=== PATIENT | male | born 1950 | race Caucasian/White ===

== ENCOUNTER 2018-04-03 19:24 | Emergency (ER) | payer MEDICARE ==
[2018-04-03 20:31] VITALS: BP 109/60
--- NOTE | 2018-04-03 20:40 | UC ---
Skin Complaint HPI - HPI Summary HPI Summary: Pt is accompanied by two caregivers. Caregivers reports that pt has a "sore" on left lower corner of lip. 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 Onset/Duration: Gradual Onset, Lasting Days, Still Present Skin Exposure Onset/Duration: Days Ago Timing: Constant Onset Severity: Mild Current Severity: Moderate Pain Intensity: 0 Location: Discrete, Other - left thais elower lip Character: Swelling Aggravating Factor(s): Nothing Alleviating Factor(s): Unknown Associated Signs & Symptoms: Positive: Negative - Allergy/Home Medications Allergies/Adverse Reactions: Allergies Allergy/AdvReac Type Severity Reaction Status Date / Time chlorpromazine Allergy Unknown Verified 04/03/18 20:34 [From Thorazine] Reaction Details codeine Allergy Unknown Verified 04/03/18 20:34 Reaction Details diphenhydramine Allergy Unknown Verified 04/03/18 20:34 Reaction Details lisinopril Allergy Unknown Verified 04/03/18 20:34 Reaction Details lithium Allergy Unknown Verified 04/03/18 20:34 Reaction Details Penicillins Allergy Unknown Verified 04/03/18 20:34 Reaction Details phenobarbital Allergy Unknown Verified 04/03/18 20:34 Reaction Details Sulfa (Sulfonamide Allergy Unknown Verified 04/03/18 20:34 Antibiotics) Reaction Details Home Medications: Home Medications ARIPiprazole TAB* [Abilify 2 MG TAB*] 2 mg PO DAILY 04/03/18 [History Confirmed 04/03/18] Atorvastatin* [Lipitor 40 MG*] 40 mg PO DAILY 04/03/18 [History Confirmed ] Bisacodyl EC TAB* [Dulcolax EC TAB*] 10 mg PO DAILY 04/03/18 [History Confirmed 04/03/18] Donepezil TAB* [Aricept 5 MG TAB*] 10 mg PO BEDTIME 04/03/18 [History Confirmed 04/03/18] Paliperidone SUSTENNA* [Invega Sustenna*] 117 mg IM Q30D 04/03/18 [History Confirmed 04/03/18] Selegiline 6 MG PATCH (NF) [Emsam PATCH (NF)] 1 patch TRANSDERM DAILY 04/03/18 [ History Confirmed 04/03/18] amLODIPine TAB* [Norvasc 5 mg TAB*] 10 mg PO DAILY 04/03/18 [History Confirmed 04/03/18] Review of Systems Constitutional: Negative Skin: Other - sore on lip Eyes: Negative ENT: Negative Respiratory: Negative Cardiovascular: Negative Gastrointestinal: Negative Genitourinary: Negative Motor: Negative Neurovascular: Negative Musculoskeletal: Negative, Decreased ROM - left hand preexisting Neurological: Negative Psychological: Negative Is Patient Immunocompromised?: No All Other Systems Reviewed And Are Negative: Yes PMH/Surg Hx/FS Hx/Imm Hx Previously Healthy: Yes Neurological History: Other - cognitive dysfunction Other Neurological History: cognitive dysfunction - Family History Known Family History: Positive: Cardiac Disease - Social History Occupation: Disabled Lives: Half-Way Alcohol Use: None Substance Use Type: None Smoking Status (MU): Never Smoked Tobacco Have You Smoked in the Last Year: No Physical Exam Triage Information Reviewed: Yes Appearance: Well-Appearing Vital Signs: Initial Vital Signs Temp 99.9 F 04/03/18 20:27 Pulse 106 04/03/18 20:27 Resp 19 04/03/18 20:27 BP 109/60 04/03/18 20:27 Pulse Ox 97 04/03/18 20:27 Vital Signs Reviewed: Yes Eye Exam: Normal ENT Exam: Other ENT: Positive: Other - left lower lip near corner of mouth, blister clear fluid filled ~ 1 cm X 5 mm. , non tender Neck exam: Normal Respiratory: Positive: No respiratory distress Musculoskeletal Exam: Other Musculoskeletal: Positive: ROM Limited @ - left hand Neurological: Positive: Alert Psychological Exam: Normal Psychological: Positive: Consolable Skin Exam: Other - mouth sore on lower left lip Course/Dx - Differential Diagnoses - Skin Complaint Differential Diagnoses: MRSA, Varicella Zoster, Other - oral herpes - Diagnoses Provider Diagnoses: oral herpes Discharge - Sign-Out/Discharge Documenting (check all that apply): Discharge/Admit/Transfer - Discharge Plan Condition: Stable Disposition: HOME Prescriptions: ValACYclovir (*) [Valtrex 1 GM(*)] 1 gm PO Q12H #10 tab Patient Education Materials: Canker Sores (ED) Referrals: No Primary Care Phys,NOPCP [Primary Care Provider] - If Needed - Billing Disposition and Condition Condition: STABLE Disposition: Home
[2018-04-03] MEDS ORDERED: Acyclovir* 200 MG CAP PO ONE (20:41)
== END 2018-04-03 20:52 | disposition home or self-care (01) ==
LOC: UCCORT 19:24
DX: B00.9 Herpesviral infection, unspecified (principal); Z88.8 Allergy status to other drugs, medicaments and biological substances; Z88.5 Allergy status to narcotic agent; Z88.0 Allergy status to penicillin; Z88.2 Allergy status to sulfonamides
CPT/HCPCS: 99212; A9270-GY; G0463

== ENCOUNTER 2018-10-24 08:42 | Emergency (ER) | payer MEDICARE ==
[2018-10-24 09:14] VITALS: BP 115/70
--- NOTE | 2018-10-24 09:47 | ED ---
Throat Pain/Nasal Congestion - HPI Summary HPI Summary: 68 yr old with exposure to pink eye at the [facility], and presents here with some drainage from the right eye for two days, and yesterday some swelling to the right upper eyelid. No swelling now. No other complaints. Symptoms are mild. - History of Current Complaint Chief Complaint: UCEye Time Seen by Provider: 10/24/18 09:36 - Allergies/Home Medications Allergies/Adverse Reactions: Allergies Allergy/AdvReac Type Severity Reaction Status Date / Time chlorpromazine Allergy Unknown Verified 10/24/18 09:15 [From Thorazine] Reaction Details codeine Allergy Unknown Verified 10/24/18 09:15 Reaction Details diphenhydramine Allergy Unknown Verified 10/24/18 09:15 Reaction Details lisinopril Allergy Unknown Verified 10/24/18 09:15 Reaction Details lithium Allergy Unknown Verified 10/24/18 09:15 Reaction Details Penicillins Allergy Unknown Verified 10/24/18 09:15 Reaction Details phenobarbital Allergy Unknown Verified 10/24/18 09:15 Reaction Details Sulfa (Sulfonamide Allergy Unknown Verified 10/24/18 09:15 Antibiotics) Reaction Details sulfamethoxazole Allergy Unknown Verified 10/24/18 09:15 [From Bactrim] Reaction Details trimethoprim [From Bactrim] Allergy Unknown Verified 10/24/18 09:15 Reaction Details Home Medications: Home Medications LevoCETirizine TAB (NF) [Xyzal TAB (NF)] 5 mg PO DAILY 10/24/18 [History Confirmed 10/24/18] clonazePAM TAB(*) [KlonoPIN TAB(*)] 0.5 mg PO BID 10/24/18 [History Confirmed ] PMH/Surg Hx/FS Hx/Imm Hx Infectious Disease History: No Infectious Disease History: Denies: Traveled Outside the [place] in Last 30 Days - Family History Known Family History: Positive: Cardiac Disease - Social History Occupation: Employed Full-time Alcohol Use: None Substance Use Type: Reports: None Smoking Status (MU): Never Smoked Tobacco Have You Smoked in the Last Year: No Review of Systems Constitutional: Negative Positive: Drainage All Other Systems Reviewed And Are Negative: Yes Physical Exam Triage Information Reviewed: Yes Vital Signs On Initial Exam: Initial Vitals Temp Pulse Resp BP Pulse Ox 98.1 F 86 19 115/70 96 10/24/18 09:07 10/24/18 09:07 10/24/18 09:07 10/24/18 09:07 10/24/18 09:07 Vital Signs Reviewed: Yes Appearance: Positive: Well-Appearing, No Pain Distress Skin: Positive: Warm, Skin Color Reflects Adequate Perfusion, Dry Head/Face: Positive: Normal Head/Face Inspection Eyes: Positive: EOMI, Conjunctiva Inflammed - bilateral right greater than left. ENT: Positive: Pharynx normal, TMs normal Neck: Positive: Nontender Respiratory/Lung Sounds: Positive: Clear to Auscultation, Breath Sounds Present Cardiovascular: Positive: RRR. Negative: Murmur Abdomen Description: Negative: Distended Musculoskeletal: Positive: Strength/ROM Intact Neurological: Positive: Sensory/Motor Intact, Alert, Oriented to Person Place, Time, CN Intact II-III, Normal Gait, Speech Normal Psychiatric: Positive: Normal - [place] Coma Scale Best Eye Response: 4 - Spontaneous Best Motor Response: 6 - Obeys Commands Best Verbal Response: 5 - Oriented Coma Scale Total: 15 Diagnostics - Vital Signs Vital Signs Temp Pulse Resp BP Pulse Ox 10/24/18 09:07 98.1 F 86 19 115/70 96 - Laboratory Lab Statement: Any lab studies that have been ordered have been reviewed, and results considered in the medical decision making process. EENT Course/Dx - Course Course Of Treatment: 68 yrold with conjunctivitis. Rx cipro eye drops bilateral 7 days. - Diagnoses Provider Diagnoses: Conjunctivitis Discharge - Sign-Out/Discharge Documenting (check all that apply): Patient Departure All imaging exams completed and their final reports reviewed: No Studies - Discharge Plan Condition: Good Disposition: HOME Prescriptions: Ciprofloxacin 0.3% OPTH.CHELY* [Cipro 0.3% Opth*] 2 drop BOTH EYES Q4H #1 btl Patient Education Materials: Conjunctivitis (ED) Referrals: Tricia Gill MD [Primary Care Provider] - 2 Days - Billing Disposition and Condition Condition: GOOD Disposition: Home
== END 2018-10-24 10:00 | disposition home or self-care (01) ==
LOC: UCCORT 08:42
DX: H10.9 Unspecified conjunctivitis (principal); Z88.0 Allergy status to penicillin; Z88.5 Allergy status to narcotic agent; Z88.8 Allergy status to other drugs, medicaments and biological substances; Z88.2 Allergy status to sulfonamides; Z88.1 Allergy status to other antibiotic agents
CPT/HCPCS: 99212; G0463

== ENCOUNTER 2019-12-10 14:27 | Emergency (ER) | payer MEDICARE, MEDICAID ==
--- NOTE | 2019-12-10 15:20 | UC ---
General HPI - HPI Summary HPI Summary: 69 [facility] with one week history of bilateral leg swelling. Onset is associated with a 72 hour period when he was not sleeping well, and on previous days edema would decrease overnight. Today he has increased erythema in both forelegs. He has no increased cough, no change in behavior or appetite. He arrives shouting that he does not belong here and is difficult to evaluate and examine. He has been taking amlodipine for some time. Weight log from his home shows stable weight, no gradual increase. 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 Negative: Cough, Chest Pain, Decreased Responsiveness, Dizziness, Diarrhea, Vomiting - Allergy/Home Medications Allergies/Adverse Reactions: Allergies Allergy/AdvReac Type Severity Reaction Status Date / Time chlorpromazine Allergy Unknown Verified 10/24/18 09:15 [From Thorazine] Reaction Details codeine Allergy Unknown Verified 10/24/18 09:15 Reaction Details diphenhydramine Allergy Unknown Verified 10/24/18 09:15 Reaction Details lisinopril Allergy Unknown Verified 10/24/18 09:15 Reaction Details lithium Allergy Unknown Verified 10/24/18 09:15 Reaction Details Penicillins Allergy Unknown Verified 10/24/18 09:15 Reaction Details phenobarbital Allergy Unknown Verified 10/24/18 09:15 Reaction Details Sulfa (Sulfonamide Allergy Unknown Verified 10/24/18 09:15 Antibiotics) Reaction Details sulfamethoxazole Allergy Unknown Verified 10/24/18 09:15 [From Bactrim] Reaction Details trimethoprim [From Bactrim] Allergy Unknown Verified 10/24/18 09:15 Reaction Details chlorine Allergy Itching Uncoded 12/10/19 15:03 Home Medications: Home Medications ARIPiprazole TAB* [Abilify 2 MG TAB*] 10 mg PO DAILY 04/03/18 [History Confirmed 12/10/19] Atorvastatin* [Lipitor 40 MG*] 40 mg PO DAILY 04/03/18 [History Confirmed ] Selegiline 6 MG PATCH (NF) [Emsam PATCH (NF)] 1 patch TRANSDERM DAILY 04/03/18 [ History Confirmed 12/10/19] amLODIPine TAB* [Norvasc 5 mg TAB*] 10 mg PO DAILY 04/03/18 [History Confirmed 12/10/19] LevoCETirizine TAB (NF) [Xyzal TAB (NF)] 5 mg PO DAILY 10/24/18 [History Confirmed 12/10/19] clonazePAM TAB(*) [KlonoPIN TAB(*)] 1 mg PO BID 10/24/18 [History Confirmed ] Acetaminophen [Tylenol] 325 mg PO Q6H PRN 12/10/19 [History Confirmed 12/10/19] Divalproex ER TAB(*) [Depakote ER TAB(*)] 250 mg PO TID 12/10/19 [History Confirmed 12/10/19] Melatonin 3 mg PO DAILY 12/10/19 [History Confirmed 12/10/19] Mupirocin 2% OINT* [Bactroban 2 % Oint*] 1 applic TOPICAL TID #30 gm 12/10/19 [ Rx] Rivastigmine PATCH 9.5 MG(NF) [Exelon PATCH(NF)] 1 patch TRANSDERM DAILY [History Confirmed 12/10/19] PMH/Surg Hx/FS Hx/Imm Hx Previously Healthy: No Cardiovascular History: Hypertension Psychological History: Schizophrenia - Surgical History Surgical History: None - Family History Known Family History: Positive: Cardiac Disease - Social History Occupation: Disabled Lives: Nursing Home Alcohol Use: None Substance Use Type: None Smoking Status (MU): Never Smoked Tobacco Have You Smoked in the Last Year: No Review of Systems All Other Systems Reviewed And Are Negative: Yes Constitutional: Positive: Negative Skin: Positive: Negative Eyes: Positive: Negative Respiratory: Negative: Shortness Of Breath, Cough Physical Exam Appearance: Other: - Elderly man, repetively saying that he is in the wrong place, shouting loudly. No apparent cough, dyspnea, and he is strong. 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 Skin Exam: Other - legs warm but not hot, no pain in calves. Bilateral 2-3+ pitting edema. Legs with diffuse, patchy erythema. There is one small crust with increase in erythema over about 6 cm area. this was circled with pen Course/Dx - Course Course Of Treatment: topical mupirocin. Advised lab work is needed, staff did not want to attempt that here. Discussed no clinical findings to suggest renal failure or CHF. Could be a side effect of amlodipine. - Differential Dx - Multi-Symptom Differential Diagnoses: Other - edema, cellulitis. - Diagnoses Provider Diagnosis: Edema Discharge ED - Sign-Out/Discharge Documenting (check all that apply): Patient Departure All imaging exams completed and their final reports reviewed: No Studies - Discharge Plan Condition: Stable Disposition: HOME Prescriptions: Mupirocin 2% OINT* [Bactroban 2 % Oint*] 1 applic TOPICAL TID #30 gm Patient Education Materials: Leg Edema (ED) Referrals: Tricia Gill MD [Primary Care Provider] - Additional Instructions: The cause of the leg edema could be a result of the amount of time Oleg was on his feet during his most recent bout of insomnia. There might be mild cellulitis around the crusted area on the right foreleg. Topical mupirocin has been prescribed for this area which has been marked. Applyy 3 times per day. (It would be unlikely for cellulitis to affect both legs.). The edema can be a side effect of amlodipine. Lab work is needed to ensure that there is not a problem with kidney function. Clinically Oleg does not have congestive heart failure. Ensure follow up with Dr. Gill in 2 days for reevaluation. - Billing Disposition and Condition Condition: STABLE Disposition: Home
== END 2019-12-10 15:50 | disposition home or self-care (01) ==
LOC: UCCORT 14:27
DX: R60.0 Localized edema (principal); I10 Essential (primary) hypertension; F20.9 Schizophrenia, unspecified; Z91.09 Other allergy status, other than to drugs and biological substances; Z88.2 Allergy status to sulfonamides; Z88.8 Allergy status to other drugs, medicaments and biological substances; Z88.0 Allergy status to penicillin; Z88.5 Allergy status to narcotic agent; Z79.899 Other long term (current) drug therapy
CPT/HCPCS: 99212; G0463